=== PATIENT | female | born 1950 | race Caucasian/White ===

== ENCOUNTER 2020-04-24 14:26 | Observation (INO) | payer OTHER ==
--- OUTSIDE RECORDS SUMMARY | 2020-04-24 14:30 | XMS REPORT | Continuity of Care Document ---
:1950 Author Organization [facility] t Address [address] [place] [address] Care Team Providers Name Role Phone BLAS Primary Care Physician Unavailable PARMINDER Attending Clinician Unavailable Moon MILNER Attending Clinician MELONIE Attending Clinician Unavailable Lexi Mccoy NP Attending Clinician Blas MILNER Attending Clinician Tobi MILNER Attending Clinician Joshua RN, A Attending Clinician Unavailable Payers Payer Name Policy Type Policy Effective Date Expiration Date Sour ce Number MEDICAREMEDICARE PART [id number] 2017 MD Saldaña A AND 00:00:00 [id number] 2017- [phone] [place], [facility] [place] [facility] [id number] 2017 MD Saldaña CONTRACTEDHUMANA NON 00:00:00 [id number]/ 02/2017-PresentOther Problems Condition Condition Condition Status Onset Resolution Last Treating Co mments Source Name Details Category Date Date Treatment Clinician Date 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 00:00: n 00 Estrogen Estrogen Disease Active receptor receptor 5-11 Loco o positive positive 00:00: n status status 00 (ER+) (ER+) Pain in Pain in Disease Active joint joint 5-11 Anderso 00:00: n 00 Intolerant Intolerant Disease Active M D of heat of heat 06-18 Anderso 00:00: n 00 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 6-20 An markosso lung lung 00:00: n 00 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 Family History Family Member Diagnosis Comments Start Date Stop Date Source Natural brother Hypertension MD Reynolds rsrhianna Natural father -Skin (not Melanoma) MD Saldaña Natural father Coronary heart disease MD Saldaña (CHD) Natural father Hypertension Jay son Maternal grandfather -Leukemia MD Catalina moscoso Natural mother Hypertension Jay son Paternal grandfather Coronary heart disease MD Saldaña (CHD) Paternal grandfather Heart disease Danika Saldaña Paternal uncle Prostate cancer MD Celia aleman Natural sister -Skin (not Melanoma) MD Saldaña Natural sister Hypertension Jay son Social History Social Habit Start Date Stop Date Quantity Comments Source Sex Assigned At MD Adan on Tobacco use and 2018-12-21 2018-12-21 Never used MD Adan on exposure 00:00:00 00:00:00 Alcohol intake 2018-12-21 2018-12-21 Current drinker MD Celia aleman 00:00:00 00:00:00 of alcohol (finding) Smoking Status Start Date Stop Date Source Never smoker MD Saldaña Medications Ordered Filled Start Stop Current Ordering Indication Dosage Frequency Signature Comments Components Source Medication Medication Date Date Medication? Clinician (SIG) Name Name anastrozole 2019-02 Yes Infiltratin Take 1 (ARIMIDEX) 1-16 g duct tablet by An derso 1 mg tablet 00:00: carcinoma mouth once n 00 of daily overlapping sites of left female breast lisinopril 2019-02 Yes 1{tbl} Take 1 MD 20 mg tab 1-11 tablet by Jay so 20 mg, 14:55: mouth n hydrochloro 18 daily. thiazide 12.5 mg cap 12.5 mg rOPINIRole 2019-02 Yes restless 1mg Take 1 mg MD (REQUIP) 1 1-11 leg by mouth Jay so mg tablet 14:55: syndrome at n 18 bedtime. Reported on 04/28/2016 calcium 2019-02 Yes 1{tbl} Take 1 MD carbonate-v 1-11 tablet by And erso itamin D3 14:55: mouth n (AFISCNVL11 18 daily with 0+D) 600 mg breakfast. (1,500mg)-4 00 units per tablet ibuprofen 2019-02 Yes 200mg Take 200 MD (ADVIL,MOTR 1-11 mg by Anderso IN) 200 mg 14:55: mouth as n tablet 18 needed. Reported on 05/04/2016 hydrocortis 2019-02 Yes 1{appli Apply 1 MD one 1% 1-11 cation} applicatio Rodolfo rso cream 14:55: n n 18 topically to affected area(s) daily as needed. Reported on 04/28/2016 diphenhydrA 2019-02 Yes 12.5mg Chew 12.5 MD MINE 1-11 mg as Anderso (BENADRYL) 14:55: needed for n 12.5 mg 18 allergies. chewable tablet acetaminoph 2019-02 Yes 500mg Take 500 M D en (TYLENOL 1-11 mg by Anderso EXTRA 14:55: mouth. n STRENGTH) 18 500 mg tablet meloxicam 2019-02 Yes 7.5mg Take 7.5 MD (MOBIC) 7.5 0-14 mg by Anderso mg tablet 00:00: mouth n 00 daily. tiZANidine Yes 4mg Take 4 mg MD (ZANAFLEX) 9-18 by mouth Jay so 4 mg tablet 00:00: as needed. n 00 traMADol Yes Infiltratin TAKE 1 MD (ULTRAM) 50 5-15 g duct TABLET BY A nderso mg tablet 00:00: carcinoma MOUTH n 00 of lower EVERY 8 inner HOURS quadrant of NEEDED left female breast aspirin 500 2019-0 2020- No 500mg Take 500 MD mg tablet 5-13 05-13 mg by Anderso 13:14: 00:00 mouth n 21 :00 every 6 (six) hours as needed for mild pain. traMADol 2019- No Infiltratin 50mg Take 1 MD (ULTRAM) 50 4-13 05-13 g duct tablet (50 Anderso mg tablet 00:00: 00:00 carcinoma mg) by n 00 :00 of lower mouth 2 inner (two) quadrant of times a left female day as breast needed for moderate pain. traMADol 2019- No Infiltratin 50mg Take 1 MD (ULTRAM) 50 3-30 05-13 g duct tablet (50 Anderso mg tablet 00:00: 00:00 carcinoma mg) by n 00 :00 of lower mouth inner daily as quadrant of needed for left female moderate breast pain or severe pain. traMADol 2019- No Infiltratin TAKE 1 MD (ULTRAM) 50 3-03 05-13 g duct TABLET BY Anderso mg tablet 00:00: 00:00 carcinoma MOUTH n 00 :00 of lower EVERY 8 inner HOURS quadrant of NEEDED left female breast diclofenac Yes 2g Apply 2 g MD sodium 2-05 topically Anderso (Voltaren) 00:00: to n 1 % gel 00 affected area(s) as needed. traMADol 2019- No Infiltratin TAKE 1 MD (ULTRAM) 50 1-07 05-13 g duct TABLET BY Anderso mg tablet 00:00: 00:00 carcinoma MOUTH n 00 :00 of lower EVERY 8 inner HOURS quadrant of NEEDED left female breast anastrozole 2018-02- No Infiltratin 1mg Take 1 MD (ARIMIDEX) 1-13 11-16 g duct tablet (1 A nderso 1 mg tablet 00:00: 00:00 carcinoma mg) by n 00 :00 of mouth overlapping daily. sites of left female breast nystatin Yes Infiltratin Apply M D (NYSTOP) 9-11 g duct topically Rodolfo rso 100,000 00:00: carcinoma to n units/g 00 of lower affected powder inner area(s) 3 quadrant of (three) left female times a breast day. traMADol 2019- No Infiltratin TAKE 1 MD (ULTRAM) 50 4-15 05-15 g duct TABLET BY Anderso mg tablet 00:00: 00:00 carcinoma MOUTH n 00 :00 of lower EVERY 6 inner HOURS quadrant of NEEDED left female breast Vital Signs Vital Name Observation Time Observation Value Comments Source Systolic blood pressure 2019-12-20 14:44:37 126 mm[Hg] MD Saldaña Diastolic blood pressure 2019-12-20 14:44:37 84 mm[Hg] MD Saldaña Heart rate 2019-12-20 14:44:37 82 /min MD Jay miranda Body temperature 2019-12-20 14:44:37 36.78 Meg MD Catalina moscoso Respiratory rate 2019-12-20 14:44:37 18 /min MD Catalina moscoso Body weight 2019-12-20 14:44:37 89.2 kg MD Jay miranda BMI 2019-12-20 14:44:37 32.76 kg/m2 MD Jay miranda Oxygen saturation in 2019-12-20 14:44:37 98 /min MD Saldaña Arterial blood by Pulse oximetry Body height 2019-06-21 12:05:00 165 cm MD Jay miranda Procedures Procedure Date / Time Performed Performing Clinician [facility] e COMPLETE BLOOD COUNT W/ 2019-12-20 13:43:00 Katia Mccoy MD DIFFERENTIAL COMPREHENSIVE METABOLIC PANEL 2019-12-20 13:43:00 Emili Mccoy MD VITAMIN D 25 HYDROXY LEVEL 2019-12-20 13:43:00 Katia Mccoy MD Results CBC 2019-12-20 13:43:00 Katia Mccoy MD Rodolfo rson MANUAL DIFFERENTIAL 2019-12-20 13:43:00 Katia Mccoy MD GLUCOSE LEVEL 2019-12-20 13:43:00 Katia Mccoy MD Rodolfo rson BLOOD UREA NITROGEN 2019-12-20 13:43:00 Katia Mccoy MD ELECTROLYTE PANEL 2019-12-20 13:43:00 Katia Mccoy MD derson SERUM CREATININE 2019-12-20 13:43:00 Katia Mccoy MD And erson .GLOMERULAR FILTRATION RATE 2019-12-20 13:43:00 Katia Mccoy MD CALCIUM LEVEL TOTAL 2019-12-20 13:43:00 Katia Mccoy MD ALBUMIN LEVEL 2019-12-20 13:43:00 Katia Mccoy MD Rodolfo rson ALKALINE PHOSPHATASE 2019-12-20 13:43:00 Katia Mccoy MD ALANINE AMINOTRANSFERASE 2019-12-20 13:43:00 Katia Mccoy MD ASPARTATE AMINOTRANSFERASE 2019-12-20 13:43:00 Katia Mccoy MD TOTAL PROTEIN 2019-12-20 13:43:00 Katia Mccoy MD Rodolfo rson FRACTIONATED BILIRUBIN 2019-12-20 13:43:00 Katia Mccoy MD MAMMO DIGITAL DIAGNOSTIC RIGHT 2019-12-20 13:20:00 Odilia Mccoy MD W JAE US CHEST 2019-06-21 15:13:13 Kali Britton MD US UPPER EXTREMITY LIMITED 2019-06-21 15:13:13 Kali Britton LEFT DEXA BONE MINERAL DENSITY BOTH 2019-06-21 12:20:27 Odilia Mccoy MD HIPS AND SPINE COMPLETE BLOOD COUNT W/ 2019-06-21 11:50:00 Katia Mccoy MD DIFFERENTIAL COMPREHENSIVE METABOLIC PANEL 2019-06-21 11:50:00 Emili Mccoy MD VITAMIN D 25 HYDROXY LEVEL 2019-06-21 11:50:00 Katia Mccoy MD Results CBC 2019-06-21 11:50:00 Katia Mccoy MD Rodolfo rson MANUAL DIFFERENTIAL 2019-06-21 11:50:00 Katia Mccoy MD GLUCOSE LEVEL 2019-06-21 11:50:00 Katia Mccoy MD Rodolfo rson ELECTROLYTE PANEL 2019-06-21 11:50:00 Katia Mccoy MD derson SERUM CREATININE 2019-06-21 11:50:00 Katia Mccoy MD And erson .GLOMERULAR FILTRATION RATE 2019-06-21 11:50:00 Katia Mccoy MD CALCIUM LEVEL TOTAL 2019-06-21 11:50:00 Katia Mccoy MD ALBUMIN LEVEL 2019-06-21 11:50:00 Katia Mccoy MD Rodolfo rson ALKALINE PHOSPHATASE 2019-06-21 11:50:00 Katia Mccoy MD ALANINE AMINOTRANSFERASE 2019-06-21 11:50:00 Katia Mccoy MD ASPARTATE AMINOTRANSFERASE 2019-06-21 11:50:00 Katia Mccoy MD TOTAL PROTEIN 2019-06-21 11:50:00 Katia Mccoy MD Rodolfo rson FRACTIONATED BILIRUBIN 2019-06-21 11:50:00 Katia Mccoy MD BLOOD UREA NITROGEN 2019-06-21 11:50:00 Katia Mccoy MD Encounters Start End Encounter Admission Attending Care Care Encounter Source Date/Time Date/Time Type Type Clinicians Facility Department ID 2020-04-24 2020-04-24 [facility] [id number] [place] 00:00:00 00:00:00 EFREN [address] 2020-03-30 2020-03-30 Outpatient MELONIE, [facility] [id number] [place] 00:00:00 00:00:00 LAZARAER [address] 2020-03-12 2020-03-12 [facility] [id number] [place] 00:00:00 00:00:00 EFREN [address] 2020-03-12 2020-03-12 [facility] [id number] [place] 00:00:00 00:00:00 EFREN [address] 2020-03-09 2020-03-09 Outpatient [facility] [id number] [place] 00:00:00 00:00:[address] 2020-02-05 2020-02-05 [facility] [id number] [place] 00:00:00 00:00:00 EFREN [address] 2019-12-14 2019-12-14 [facility] [id number] [place] 00:00:00 00:00:00 EFREN [address] 2019-12-14 2019-12-14 [facility] [id number] [place] 00:00:00 00:00:00 EFREN [address] 2019-10-27 2019-10-27 [facility] [id number] [place] 00:00:00 00:00:00 EFREN [address] Results Test Description Test Time Test Comments Results Result Comments Source Vitamin D 25OH 2019-12-20 15:31:08 Test Item Value Reference Range Interpretation Comme nts Vitamin D 25 OH (test code = 56 ng/mL 30-100 Reference Range: Deficiency: 8018) <10 ng/mLInsuff iciency: 10-29 ng/mLSufficienc y: 30-100 ng/mLPotential toxicity: >100 ng/mL MD SaldañaFractionated [id number] 14:14:09 Test Item Value Reference Range Interpretation Comments Bili Total (test 0.4 mg/dL See_Comment Indocyanine Green (ICG) code = 5096) may cause false ly elevated biliru bin results. Total and direct bilirubin must not be measured from s amples containing indo cyanine green. False el evation of total bilirubin can be seen in patient s with IgG concentrations above 28 g/L.Testing Per formed at [facility], [address] [place] [address], [address], [facility] [[email or web address]] [place] [address] [Automat ed message] The sy stem which generated this result transmitted ref erence range: <=1.2. T he reference range was not used to interpr et this result as normal/abnormal . Bili Direct (test <0.2 See_Comment Indocyanin e Green (ICG) code = 5094) may cause false ly elevated biliru bin results. Total and direct bilirubin must not be measured from s amples containing indo cyanine green. Testing Performed at [facility], [address] [place] [address], [address], [place] [address] [Auto mated message] The sy stem which generated this result transmitted ref erence range: <=0.3 mg /dL. The reference range was not used to interpr et this result as normal/abnormal . Bili Indirect (test See Note 0-0.9 Testing Performed at [facility] code = 5095) Lab [facility], [address] [place] [address] B [address]vd, [address], [place], [place] [address]Skzgkv to calculate Indirect Biliru bin result due to some par ameters are outside rep ortable range MD SaldañaGlomerular Filtration [id number] 14:14:08 Test Item Value Reference Range Interpretation Comments eGFR-AA (test code = 63 See_Comment Normal eGFR >= 60 8062) mL/min/1.73 m2 Note: The eGFR is yvette culated using the CKD-E PI equation. The e GFR declines with a ge. eGFR <60 mL/min /1.73 m2 is considere d as "decreased". Th is equation should only be used for pat ients 18 and older. According to th e National Kidney Foundation's dney Disease Outcome Quality Initiat skye (KDOQI) classif ication and 2012 Kidney Disease Improvi ng Global Outcomes (KDIGO) Clinica l Practice Guidel ine, the stage of CK D should be categ orized based on estima flaco GFR. Stage Desc ription GFR mL/mi n/1.73 m21 Normal or h igh GFR >=902 Mildly decreased GFR 60-893a M ildly to moderately decreased GFR 45-593b Moderat jaren to severely decrea sed GFR 30-444 Nidla rely decreased GFR 15-295 Kidney f ailure <15 Testi ng Performed at [facility], [address], [address], [place] [address] [Automat ed message] The sy stem which generated this result transmit flaco reference range : >=60 mL/min/1.73 sq. m. The reference range was not used to int erpret this result as normal/abnormal . eGFR-JENNIFER (test code = 54 See_Comment L Normal eGFR >= 60 8063) mL/min/1.73 m2 Note: The eGFR is yvette culated using the CKD-E PI equation. The e GFR declines with a ge. eGFR <60 mL/min /1.73 m2 is considere d as "decreased". Th is equation should only be used for pat ients 18 and older. According to th e National Kidney Foundation's dney Disease Outcome Quality Initiat skye (KDOQI) classif ication and 2012 Kidney Disease Improvi ng Global Outcomes (KDIGO) Clinica l Practice Guidel ine, the stage of CK D should be categ orized based on estima flaco GFR. Stage Desc ription GFR mL/mi n/1.73 m21 Normal or h igh GFR >=902 Mildly decreased GFR 60-893a M ildly to moderately decreased GFR 45-593b Moderat jaren to severely decrea sed GFR 30-444 Nilda rely decreased GFR 15-295 Kidney f ailure <15 Testin g Performed at [facility], [address], [address], [facility] [address] [Automat ed message] The sy stem which generated this result transmit flaco reference range : >=60 mL/min/1.73 sq. m. The reference range was not used to int erpret this result as normal/abnormal . Lab Interpretation Abnormal (test code = 83195-1) MD SaldañaTotal [id number] 14:14:07 Test Item Value Reference Range Interpretation Comments Total Protein (test 7.5 g/dL 6.4-8.3 Testing Performed at [facility] code = 7649) Lab [facility], [address], [address], [place] [address] MD SaldañaCalcium [id number] 14:14:06 Test Item Value Reference Range Interpretation Comments Calcium Lvl (test 9.8 mg/dL 8.4-10.2 Testing Pe rformed at code = 5258) [facility], [address], [address], [place], [place] [address] MD SaldañaAlkaline [id number] 14:14:05 Test Item Value Reference Range Interpretation Comments Alk Phos (test code = 79 U/L 35-104 Testin g Performed at [facility] 4772) Lab [facility], [address], [place] [address] MD SaldañaAlbumin [id number] 14:14:04 Test Item Value Reference Range Interpretation Comments Albumin Lvl (test code 4.6 See_Comment Testi ng Performed at [facility] = 9405) Lab [facility], [address], [address], [place] [address] [Automated mess age] The system which ge nerated this result tra nsmitted reference range : 3.5 - 5.2 gm/dL. The refe rence range was not used to interpret this result as normal/abnormal . MD SaldañaAspartate [id number] 14:14:03 Test Item Value Reference Range Interpretation Comments AST (test code = 20 U/L See_Comment Testing Per formed at [facility] 1229) Lab [facility], [address], [place] [address] [Automated mess age] The system which ge nerated this result transmit flaco reference range : <=32. The reference range was not used to interpr et this result as pema l/abnormal. MD [id number] 14:14:01 Test Item Value Reference Range Interpretation Comments ALT (test code = 16 U/L See_Comment Testing Per formed at [facility] 4705) Lab [facility], [address], [place] [address] [Automated mess age] The system which ge nerated this result transmit flaco reference range : <=33. The reference range was not used to interpr et this result as pema l/abnormal. MD SaldañaElectrolyte [id number] 14:14:00 Test Item Value Reference Range Interpretation Comments Sodium Lvl (test code = 137 See_Comment Test ing Performed at [facility] 7333) Lab [facility], [address], [place] [address] [Automated mess age] The system which ge nerated this result tra nsmitted reference range : 136 - 145 mEq/L. The reference range was not u sed to interpret this result as normal/abnormal . Potassium Lvl (test 5.1 See_Comment Testing Performed at [facility] code = 6854) Lab [facility], [address], [place] [address] [Automated mess age] The system which ge nerated this result tra nsmitted reference range : 3.5 - 5.1 mEq/L. The reference range was not u sed to interpret this result as normal/abnormal . Chloride (test code = 100 See_Comment Testin g Performed at [facility] 4763) Lab [facility], [address], [place] [address] [Automated mess age] The system which ge nerated this result tra nsmitted reference range : 98 - 107 mEq/L. The refe rence range was not u sed to interpret this result as normal/abnormal . CO2 (test code = 5227) 27 See_Comment Testi ng Performed at [facility], [address], [place] [address] [Automated mess age] The system which ge nerated this result tra nsmitted reference range : 22 - 29 mEq/L. The refe rence range was not u sed to interpret this result as normal/abnormal . Anion Gap (test code = 10 See_Comment Testi ng Performed at [facility] 9325) Lab [facility], [address], [place] [address] [Automated mess age] The system which ge nerated this result tra nsmitted reference range : 4 - 14 mEq/L. The refe rence range was not u sed to interpret this result as normal/abnormal . MD Saldaña.Serum [id number] 14:13:59 Test Item Value Reference Range Interpretation Comments Creatinine (test code = 1.06 mg/dL 0.51-0.95 H Test ing Performed 5399) at [facility] Lab [facility], [address], [place], [place] [address] Lab Interpretation (test Abnormal code = 70095-1) MD [id number] 14:13:58 Test Item Value Reference Range Interpretation Comments BUN (test code = 5055) 24 mg/dL 6-23 H Testi ng Performed at [facility] Lab [facility], [address] [facility], [address], [place] [address] Lab Interpretation (test Abnormal code = 10830-0) MD SaldañaGlucose [id number] 14:13:57 Test Item Value Reference Range Interpretation Comments Glucose Level (test code 103 mg/dL 70-99 H Ref erence range is = 5699) valid for fasti ng specimens only. Guidelines established by the [place] [employer] es Association guidelines (Standards of Medical Care in Diabetes 2016. Diabetes Care 2 016; 39: S13-22) are that a fasting gluco se of greater than or equal to 126 mg /dL or a random glu cose greater than or equal to 200 mg /dL with symptoms, that are confirmed b y repeat testing on a different day, meet the criteria fo r diabetes mellit us. Testing Perform ed at [facility] Lab [facility], [address], [place] [address] Lab Interpretation (test Abnormal code = 28585-1) MD Sal[id number] 13:53:48 Test Item Value Reference Range Interpretation Comments Neutrophil % (test code 68.4 % 42-66 H As p art of = 6491) Differential performed at [facility], [address], [place] [address] Lymphocyte % (test code 17.2 % 24-44 L = 6194) Monocyte % (test code = 8.3 % 2-7 H 6422) Eosinophil % (test code 4.8 % 1-4 H = 5520) Basophil % (test code = 0.6 % 0-1 5068) IGRE % (test code = 0.7 % 0-0.4 H IGRE % c ount includes 5958) Metamyelocytes, Myelocytes, and Promyelocytes. As part of Differe ntial performed at [facility], [address], [place] [address] Neutrophil Abs (test 6.01 K/uL 1.7-7.3 code = 6492) Lymphocyte Abs (test 1.51 K/uL 1-4.8 code = 6195) Monocyte Abs (test code 0.73 K/uL 0.08-0.7 H = 6423) Eosinophil Abs (test 0.42 K/uL 0.04-0.4 H code = 5521) Basophil Abs (test code 0.05 K/uL 0-0.1 = 5069) IG Abs (test code = 0.06 K/uL 0-0.04 H 5954) Lab Interpretation Abnormal (test code = 10015-7) MD Saldaña.[id number] 13:53:45 Test Item Value Reference Range Interpretation Comments WBC (test code = 8.8 K/uL -11 8034) RBC (test code = 4.83 See_Comment [Automated message] The 6932) system which ge nerated this result tra nsmitted reference range : 4.00 - 5.50 M/uL. The reference range was not u sed to interpret this result as normal/abnormal . Hgb (test code = 14.0 See_Comment As part of CBC or as an 5898) individual [place] testing perform ed at [facility], [address], [place] [address] [Automated mess age] The system which ge nerated this result tra nsmitted reference range : 12.0 - 16.0 gm/dL. The reference range was not u sed to interpret this result as normal/abnormal . Hct (test code = 43.8 % 37-47 As part of CBC or as an 5860) individual [place] testing perform ed at [facility], [address], [place] [address] MCV (test code = 91 fL 82-98 6222) MCH (test code = 29.0 pg 27-31 6220) MCHC (test code = 32.0 See_Comment [Automate d message] The 6221) system which ge nerated this result tra nsmitted reference range : 31.0 - 36.0 gm/dL. The reference range was not u sed to interpret this result as normal/abnormal . RDW-SD (test code = 40.1 fL 35.1-46.3 6972) RDW-CV (test code = 12.3 % 12-15.5 6971) Platelet count (test 226 K/uL 140-440 As part of CBC or as an code = 6832) individual [place] testing perform ed at [facility], [address], [place] [address] MPV (test code = 9.3 fL 4-10.4 6282) INRBC (test code = 0.0 % See_Comment The INRBC (instrument 5974) NRBC) value ref lects the enumerationof n ucleated red blood cells contained in a 200uL samp leof whole blood analyzed by the instrument. Thi s value maydiffer from the NRBC value reported in a manual differen tial,which is based on a 1 00 cell differential. A s part of CBC testing per formed at [id number], [place] [address] [Automat ed message] The sy stem which generated this result transmitted ref erence range: <=0.0. T he reference range was not used to interpr et this result as normal/abnormal . MD SaldañaDiagnostic Mammogram w Jae - [id number] 13:21:35No evidence of malignancy. Follow-up mammogram in 1 year is recommended. BI-RADS Category 1:Negative Interface, Radiology Results In - 12/20/2019 7:21 AM CSTCLINICAL INDICATION:Patient is a 69 year old female and is seen for history of breast cancer MAMMO DIGITAL DIAGNOSTIC RIGHT W TOMOCOMPARISON:The present examination has been compared to prior imaging studies performed [facility] on 10/26/2017 and 12/21/2018. FINDINGS:There are scattered areas of fibroglandular density. No dominant mass, distortion, or suspicious calcifications are identified.There are no significant changes from the prior study. Tomosynthesis performed in CC and MLO projections. IMPRESSION:No evidence of malignancy. Follow-up mammogram in 1 year is recommended. BI-RADS Category 1:NegativeMD AndersonUS Upper Extremity Limited [id number] 21:29:19 No recurrent disease or malignant adenopathy detected. ACR BI-RADS Category 2: Benign Interface, Radiology Results In - 06/21/2019 4:38 PM CDTFULL RESULT:Examination: US CHEST, US UPPER EXTREMITY LIMITED LEFT, 06/21/2019 10:13 AMClinical History: 68-year-old woman with history of left breast multicentric IDC/DCIS High Grade.Indication: Follow-up surveillance of left axillary lymphadenopathyComparison: 04/26/2018 ultrasound exam. Technique: Real-time sonographic imaging of the left breast (including all 4 quadrants and retroareolar region) was performed. Imaging was performed of the axilla (levels I, II, and III). Ultrasound imaging of the chest/mediastinum was performed to evaluate the internal mammary lymph nodes. Images were obtained in multiple scanning planes.Findings: Left ChestWall:No suspicious sonographic findings to suggest recurrent disease. Status post mastectomy.Left Azucena Basins:No suspicious axillary (level I, II & III) or internal mammary lymphadenopathy is detected. IMPRESSION:No recurrent disease or malignant adenopathy detected. ACR BI-RADS Category 2: BenignMD AndersonUS [id number] 21:29:19 No recurrent disease or malignant adenopathy detected. ACR BI-RADS Category 2: Benign Interface, Radiology Results In - 06/21/2019 4:38 PM CDTFULL RESULT:Examination: US CHEST, US UPPER EXTREMITY LIMITED LEFT, 06/21/2019 10:13 AMClinical History: 68-year-old woman with history of left breast multicentric IDC/DCIS High Grade.Indication: Follow-up surveillance of left axillary lymphadenopathyComparison: 04/26/2018 ultrasound exam. Technique: Real-time sonographic imaging of the left breast (including all 4 quadrants and retroareolar region) was performed. Imaging was performed of the axilla (levels I, II, and III). Ultrasound imaging of the chest/mediastinum was performed to evaluate the internal mammary lymph nodes. Images were obtained in multiple scanning planes.Findings: Left ChestWall:No suspicious sonographic findings to suggest recurrent disease. Status post mastectomy.Left Azucena Basins:No suspicious axillary (level I, II & III) or internal mammary lymphadenopathy is detected. IMPRESSION:No recurrent disease or malignant adenopathy detected. ACR BI-RADS Category 2: BenignMD AndersonNM Bone Mineral Density Both Hips and [id number] 12:57:35Bone mineral density measurements are in the normal range. Statistically significant reduction in bone mineral density measurements in the left femoral neck may relate to differences in positioning andincrease in the lumbar spine may relate to evolving degenerative changes and overall no significant interval change. I personally reviewed these image(s) along with the resident's/fellow's interpretations, certify that if a procedure was performed I was physically present, and agree with the final report.Interface, Radiology Results In - 06/21/2019 7:59 AM CDTExamination: Bone Mineral Density (DXA), 06/21/2019Clinical History: 68-year-old postmenopausal patient treated for breast cancer.Indication: Assessment of bone mineral density.Comparison: 06/15/2018.Technique: Bone mineral density was obtained using Hologic dual-energy X-ray absorptiometry.Findings: The findings are provided in the below table( s).FULL RESULT:Bone Density: ---Region Exam Date BMD T- Z- g/cm2 Score Score AP Spine (L1-L4) 06/21/2019 1.131 0.8 2.6 Femoral Neck (Left) 06/21/2019 0.817 -0.3 1.3 Total Hip (Left) 06/21/2019 1.026 0.7 2.0 Femoral Neck (Right) 06/21/2019 0.846 0.0 1.6 Total Hip (Right) 06/21/2019 1.007 0.5 1.8 For postmenopausal women and men age 50 and over, the World Health Organization criteria for BMDinterpretation classify patients as: Normal (T-score at or above -1.0), Osteopenia (T-score between -1.0 and -2.5), or Osteoporosis (T-score at or below -2.5). Previous Exams: Region Exam Age BMD T-score BMD Change vs Date g/cm2 Baseline Previous AP Spine(L1-L4) 06/21/2019 68 1.131 0.8 -2.3% 5.3%* 06/15/2018 67 1.074 0.2 -7.2%* -4.1%* 06/18/2017 66 1.120 0.7 -3.3%* -3.3%* 06/26/2016 65 1.158 1.0 Total Hip(Left) 06/21/2019 68 1.026 0.7 4.2%* 0.0% 06/15/2018 67 1.026 0.7 4.2%* -1.2% 06/18/2017 66 1.039 0.8 5.5%* 5.5%* 06/26/2016 65 0.985 0.3 Femoral Neck(Left) 06/21/2019 68 0.817 -0.3 -8.2%* -9.3%* 06/15/2018 67 0.902 0.5 1.3% -0.5% 06/18/2017 66 0.907 0.5 1.8% 1.8% 06/26/2016 65 0.890 0.4 Total Hip(Right) 06/21/2019 68 1.007 0.5 5.1%* 1.2% 06/15/2018 67 0.995 0.4 3.8%* 1.2% 06/18/2017 66 0.983 0.3 2.6% 2.6% 06/26/2016 65 0.958 0.1 Femoral Neck(Right) 06/21/2019 68 0.846 0.0 -1.6% -0.7% 06/15/2018 67 0.852 0.0 -0.9% 3.0% 06/18/2017 66 0.827 -0.2 -3.8% -3.8% 06/26/2016 65 0.860 0.1 *Denotes significance at 95%confidence level, site specific LSC for AP Spine = 0.029 g/cm2, site specific LSC for Total Hip = 0.033 g/cm2, site specific LSC for Femoral Neck = 0.045 g/cm2, LSC for 1/3 Forearm = 0.023 g/cm2 IMPRESSION:Bone mineral density measurements are in the normal range.Statistically significant reduction inbone mineral density measurements in the left femoral neck may relate to differences in positioning and increase in the lumbar spine may relate to evolving degenerative changes and overall no significant interval change.I personally reviewed these image(s) along with the resident's/fellow's interpretations, certify that if a procedure was performed I was physically present, and agree with the final report.MD Saldaña
[2020-04-24 15:59] LABS: Absolute Lymphocytes (CBC) 1.1 K/uL (0.7-4.9); Basophils % 0.6 % (0-1.3); Hematocrit 39.5 % (36.0-45.0); Lymphocytes % 10.3 % (15.3-44.8); MPV 8.4 fL (7.6-11.3); RBC Red Blood Cell Count 4.57 M/uL (3.86-4.86)
[2020-04-24 16:02] LABS: Protime INR 0.91
[2020-04-24 16:15] LABS: ALT/SGPT 21 U/L (12-78); AST/SGOT 15 U/L (15-37); Alkaline Phosphatase 92 U/L (45-117); BUN Blood Urea Nitrogen 21 mg/dL (7-18); Bicarbonate 26 mmol/L (21-32); Bilirubin Direct 0.1 mg/dL (0-0.2); Bilirubin Total 0.4 mg/dL (0.2-1.0); Glucose Level 95 mg/dL (74-106); Magnesium 2.3 mg/dL (1.8-2.4); NT PRO-BNP 115 pg/mL (<125); Potassium 3.9 mmol/L (3.5-5.1); Protein, Total 7.6 g/dL (6.4-8.2); Sodium Level 139 mmol/L (136-145); Troponin (Emerg Dept Use Only) < 0.02 ng/mL (0.0-0.045)
--- NOTE | 2020-04-24 16:31 | RAD REPORT ---
EXAM DESCRIPTION: RAD - Chest Single View - 04/24/2020 3:43 pm CLINICAL HISTORY: CHEST PAIN COMPARISON: None TECHNIQUE: AP portable chest image was obtained 04/24/2020 3:43 pm . FINDINGS: Lungs are clear. Heart and vasculature are normal. No measurable pleural effusion and no p neumothorax. No acute bony abnormality seen. No acute aortic findings suspected. IMPRESSION: No acute cardiopulmonary process.
--- NOTE | 2020-04-24 17:08 | EDPHYS ---
Physician Documentation [facility] Name: Jennifer New Age: 69 yrs Sex: Female : 1950 Arrival Date: 04/24/2020 Time: 14:29 Bed 5 Private MD: ED Physician Jaime Stevens HPI: 04/24 15:09 This 69 yrs old Female presents to ER via Ambulatory with complaints of Chest [facility] Tightness. 15:09 The patient or guardian reports chest pain that is located primarily in the substernal [facility] area. Onset: acutely, yesterday. The pain radiates to the left scapula. Associated signs and symptoms: Pertinent negatives: shortness of breath, fever, cough. The chest pain is described as tightness. Duration: The patient or guardian reports multiple episodes, that are intermittent. Modifying factors: The symptoms are alleviated by nothing. the symptoms are aggravated by nothing. This is a 69 year old female with a history of htn, hlp, depression that presents to the ED with complaints of left sided chest pain beginning yesterday which was acute onset. Patient denies cough, fever, sob. HX of breast cancer. . Historical: - Allergies: 14:39 Lorazepam; ll1 - PMHx: 14:39 Hypertension; High Cholesterol; breast CA; restless legs; Depression; ll1 - PSHx: 14:39 Mastectomy, Left; oophrectomy; ll1 - Immunization history:: Flu vaccine is up to date. - Social history:: Smoking status: Patient denies any tobacco usage or history of. ROS: 15:09 Constitutional: Negative for fever, chills, and weight loss. jmm 15:09 Cardiovascular: Positive for chest pain. 15:09 All other systems are negative. Exam: 15:09 Constitutional: This is a well developed, well nourished patient who is awake, alert, jmm and in no acute distress. Head/Face: atraumatic. Eyes: EOMI, no conjunctival erythema appreciated ENT: Moist Mucus Membranes Neck: Trachea midline, Supple 15:09 Cardiovascular: Regular rate and rhythm. No edema appreciated Respiratory: Normal respirations, no respiratory distress appreciated Abdomen/GI: Non distended, soft Back: Normal ROM Skin: General appearance color normal MS/ Extremity: Moves all extremities, no obvious deformities appreciated, no edema noted to the lower extremities Neuro: Awake and alert, normal gait Psych: Behavior is normal, Mood is normal, Patient is cooperative and pleasant 15:09 Chest/axilla: Inspection: normal, Palpation: is normal. Vital Signs: 14:34 BP 176 / 95; Pulse 102; Resp 17; Temp 98.6; Pulse Ox 98% on R/A; Weight 85.73 kg; ll1 Height 5 ft. 6 in. (167.64 cm); Pain 3/10; 16:12 BP 152 / 103; Pulse 90; Resp 16; Pulse Ox 97% on R/A; hb 17:32 BP 156 / 97; Pulse 88; Resp 16; Pulse Ox 98% on R/A; Pain 0/10; ss 17:44 BP 149 / 107; Pulse 92; Resp 14; Pulse Ox 97% on R/A; hb 18:18 BP 139 / 92; Pulse 93; Resp 14; Pulse Ox 96% on R/A; hb 19:30 BP 136 / 91; Pulse 97; Resp 18; Pulse Ox 96% on R/A; wh 14:34 Body Mass Index 30.51 (85.73 kg, 167.64 cm) ll1 MDM: 15:19 Patient medically screened. [facility] 17:03 The patient was given aspirin in the Emergency Department. Data reviewed: vital signs, [facility] lab test result(s), EKG. ED course: I discussed the patient with Dr. Rolle whom accepted admission. . 04/24 15:09 Order name: CBC with Diff; Complete Time: 16:04 [facility] 04/24 15:09 Order name: LFT's; Complete Time: 16:16 [facility] 04/24 15:09 Order name: Magnesium; Complete Time: 16:16 [facility] 04/24 15:09 Order name: NT PRO-BNP; Complete Time: 16:16 [facility] 04/24 15:09 Order name: PT-INR; Complete Time: 16:09 [facility] 04/24 15:09 Order name: Troponin (emerg Dept Use Only); Complete Time: 16:16 [facility] 04/24 15:09 Order name: XRAY Chest (1 view); Complete Time: 16:33 [facility] 04/24 15:09 Order name: EKG; Complete Time: 15:10 [facility] 04/24 15:09 Order name: D-Dimer; Complete Time: 16:09 [facility] 04/24 15:10 Order name: Basic Metabolic Panel; Complete Time: 16:16 [facility] 04/24 17:00 Order name: COVID-19 : Document "Date of Symptom Onset" if Symptomatic. [facility] 04/24 19:02 Order name: SARS-COV-2 RT PCR; Complete Time: 19:03 [facility] 04/24 15:09 Order name: Cardiac monitoring; Complete Time: 16:03 [facility] 04/24 15:09 Order name: EKG - Nurse/Tech; Complete Time: 16:03 [facility] 04/24 15:09 Order name: IV Saline Lock; Complete Time: 16:17 [facility] 04/24 15:09 Order name: Labs collected and sent; Complete Time: 16:02 [facility] 04/24 15:09 Order name: O2 Per Protocol; Complete Time: 16: [facility] 04/24 15:09 Order name: O2 Sat Monitoring; Complete Time: 16:03 [facility] Administered Medications: 17:22 Not Given (Physician Discretion; pt already had a full dose today): Aspirin Chewable sv Tablet 324 mg PO once; 81 mg tablets x 4 Disposition: 04/24/20 17:07 Hospitalization ordered by Monty Rolle for Observation. Preliminary diagnosis is Chest pain, unspecified. - Bed requested for Telemetry/MedSurg (observation). - Status is Observation. - Condition is Stable. - Problem is new. - Symptoms are unchanged. Addendum: 04/25/2020 21:45 Available for consultation at all times. Did not see or evaluate patient unless p s1 otherwise noted. . Signatures: Dispatcher [employer] [facility] Chaya Pearson, RN ARIADNE dw Geovani Frank PA PA [facility] Gt Ochoa RN RN Jaime Stevens MD MD ps1 Waqar Patel RN RN Christiana King RN sv Corrections: (The following items were deleted from the chart) 04/24 16:03 15:10 BASIC METABOLIC PANEL+C.LAB.BRZ ordered. [facility] 19:15 17:07 Hospitalization Ordered by Monty Rolle DO for Observation. Preliminary diagnosis is Chest pain, unspecified. Bed requested for Telemetry/MedSurg (observation). Status is Observation. Condition is Stable. Problem is new. Symptoms are unchanged. [facility] 19:57 19:15 04/24/2020 17:07 Hospitalization Ordered by Monty Rolle DO for Observation. wh Preliminary diagnosis is Chest pain, unspecified. Bed requested for Telemetry/MedSurg (observation). Status is Observation. Condition is Stable. Problem is new. Symptoms are unchanged. dw
--- NOTE | 2020-04-24 17:08 | ER ---
Nurse's Notes [facility] Name: Jennifer New Age: 69 yrs Sex: Female : 1950 Arrival Date: 04/24/2020 Time: 14:29 Bed 5 Private MD: Diagnosis: Chest pain, unspecified Presentation: 04/24 14:34 Chief complaint: Patient states: L CP off/on for 2 days. Pain radiates through to back. ll1 States she told her doctor today about her elevated BP today, but didn't tell her about the chest pain. + lightheaded. No SOB or cough. Coronavirus screen: Client denies travel out of the [place] in the last 14 days. fatigue, Client presents with at least one sign or symptom that may indicate coronavirus-19. Standard/surgical mask placed on the client. Ebola Screen: Patient denies travel to an Ebola-affected area in the 21 days before illness onset. Initial Sepsis Screen: Does the patient meet any 2 criteria? HR > 90 bpm. No. Patient's initial sepsis screen is negative. Does the patient have a suspected source of infection? Yes: Other: L CP. Risk Assessment: Do you want to hurt yourself or someone else? Patient reports no desire to harm self or others. Onset of symptoms was April 23, 2020. 14:34 Method Of Arrival: Ambulatory ll1 14:34 Acuity: KIM 3 ll1 Triage Assessment: 19:15 General: Behavior is calm, cooperative, appropriate for age. wh Historical: - Allergies: 14:39 Lorazepam; ll1 - PMHx: 14:39 Hypertension; High Cholesterol; breast CA; restless legs; Depression; ll1 - PSHx: 14:39 Mastectomy, Left; oophrectomy; ll1 - Immunization history:: Flu vaccine is up to date. - Social history:: Smoking status: Patient denies any tobacco usage or history of. Screenin:47 Abuse screen: Denies threats or abuse. Denies injuries from another. Nutritional hb screening: No deficits noted. Tuberculosis screening: No symptoms or risk factors identified. Fall Risk None identified. Assessment: 15:47 General: Appears in no apparent distress. Pain: Pain currently is 3 out of 10 on a pain hb scale. Neuro: Level of Consciousness is awake, alert, obeys commands, Oriented to person, place, time, situation. Cardiovascular: Capillary refill < 3 seconds Patient's skin is warm and dry. Rhythm is irregular. Respiratory: Respiratory effort is even, unlabored, Respiratory pattern is regular, symmetrical. GI: No signs and/or symptoms were reported involving the gastrointestinal system. : No signs and/or symptoms were reported regarding the genitourinary system. EENT: No signs and/or symptoms were reported regarding the EENT system. Derm: Skin is pink, warm \T\ dry. Musculoskeletal: No signs and/or symptoms reported regarding the musculoskeletal system. 16:18 Reassessment: Patient appears in no apparent distress at this time. Patient and/or hb family updated on plan of care and expected duration. Pain level reassessed. Patient is alert, oriented x 3, equal unlabored respirations, skin warm/dry/pink. 17:32 Reassessment: Patient appears in no apparent distress at this time. Patient and/or ss family updated on plan of care and expected duration. Pain level reassessed. Patient is alert, oriented x 3, equal unlabored respirations, skin warm/dry/pink. aware of admission for further evaluation. Awaiting covid results that have been sent now prior to receiving room assignment. Call light within reach. 18:18 Reassessment: Patient appears in no apparent distress at this time. Patient and/or hb family updated on plan of care and expected duration. Pain level reassessed. Patient is alert, oriented x 3, equal unlabored respirations, skin warm/dry/pink. 19:15 Reassessment: Patient appears in no apparent distress at this time. Patient and/or wh family updated on plan of care and expected duration. Pain level reassessed. Patient is alert, oriented x 3, equal unlabored respirations, skin warm/dry/pink. 19:55 Pain: Complains of pain in chest Pain radiates to back Pain began 2-3 days ago. Vital Signs: 14:34 BP 176 / 95; Pulse 102; Resp 17; Temp 98.6; Pulse Ox 98% on R/A; Weight 85.73 kg; ll1 Height 5 ft. 6 in. (167.64 cm); Pain 3/10; 16:12 BP 152 / 103; Pulse 90; Resp 16; Pulse Ox 97% on R/A; hb 17:32 BP 156 / 97; Pulse 88; Resp 16; Pulse Ox 98% on R/A; Pain 0/10; ss 17:44 BP 149 / 107; Pulse 92; Resp 14; Pulse Ox 97% on R/A; hb 18:18 BP 139 / 92; Pulse 93; Resp 14; Pulse Ox 96% on R/A; hb 19:30 BP 136 / 91; Pulse 97; Resp 18; Pulse Ox 96% on R/A; wh 14:34 Body Mass Index 30.51 (85.73 kg, 167.64 cm) ll1 ED Course: 14:29 Patient arrived in ED. ds1 14:37 Triage completed. ll1 14:39 Arm band placed on Patient placed in an exam room, on a stretcher. 1 15:08 Geovani Frank PA is PHCP. [facility] 15:08 Jaime Stevens MD is Attending Physician. [facility] 15:26 Selma Garcia, RN is Primary Nurse. hb 15:43 XRAY Chest (1 view) In Process Unspecified. EDMS 15:47 Patient has correct armband on for positive identification. Bed in low position. Call hb light in reach. Side rails up X 1. supervisor alum plant on. Pulse ox on. NIBP on. 15:47 Patient maintains SpO2 saturation greater than 95% on room air. hb 15:48 Initial lab(s) drawn, by nc, sent to lab. Inserted saline lock: 18 gauge in right mh5 wrist, using aseptic technique. Blood collected. 15:49 EKG done, by ED staff, reviewed by Jaime Stevens MD. [facility] 16:02 Basic Metabolic Panel Sent. 5 16:02 D-Dimer Sent. 5 16:02 CBC with Diff Sent. 5 16:02 LFT's Sent. 5 16:02 Magnesium Sent. 5 16:02 NT PRO-BNP Sent. 5 16:03 PT-INR Sent. 5 16:03 Troponin (emerg Dept Use Only) Sent. 5 17:07 Monty Rolle DO is Hospitalizing Provider. [facility] 17:31 No provider procedures requiring assistance completed. Inserted saline lock: 22 gauge ss in right hand, using aseptic technique. 17:31 Patient admitted, IV remains in place. ss Administered Medications: 17:22 Not Given (Physician Discretion; pt already had a full dose today): Aspirin Chewable sv Tablet 324 mg PO once; 81 mg tablets x 4 Outcome: 17:07 Decision to Hospitalize by Provider. tito 19:55 Admitted to Med/surg accompanied by tech, via wheelchair, room 220, with chart, Report wh called to Sangita Klein RN 19:55 Condition: stable 19:55 Instructed on the need for admit. 19:57 Patient left the ED. Signatures: Dispatcher [employer] Christiana Sharma, RN ARIADNE Geovani Frank PA PA jmm Sanford, Demi ds1 Antonina Horne RN RN Selma Garcia RN RN hb Martinez, Maria [facility] Gt Ochoa RN RN Waqar Patel RN RN ll1 Corrections: (The following items were deleted from the chart) 16:03 16:01 BASIC METABOLIC PANEL+C.LAB.BRZ drawn and sent. EDPA 19:55 19:15 Pain: Denies pain. [facility]
--- NOTE | 2020-04-24 17:37 | P.HP ---
Certification for Inpatient Patient admitted to: Observation With expected LOS: <2 Midnights Patient will require the following post-hospital care: None Practitioner: I am a practitioner with admitting privileges, knowledge of patient current condition, hospital course, and medical plan of care. Services: Services provided to patient in accordance with Admission requirements found in Title 42 Section 412.3 of the Code of Federal Regulations Patient History Date of Service: 04/24/20 Primary Care Provider: Roberto Salazar Reason for admission: Chest pain History of Present Illness: 69-year-old female with history of hypertension, hyperlipidemia, depression with anxiety and breast cancer with prior left breast mastectomy and chemotherapy. Patient presented with chest pain. Patient reported chest pain yesterday to the center of the chest that radiated to the left chest wall down to the arm pit and back. Pain was intense. This lasted about 45 min. She then reported some pain again today. He was tight with a dull ache. She denied any shortness of breath, nausea vomiting. She came to the ER for further evaluation. In the ER patient evaluated. EKG does not show any significant ST elevation. Troponin unremarkable. CBC and BMP stable. Due to her risk factors the patient was admitted for observation. When I saw the patient ER, patient stable. Blood pressures were elevated. Patient reported blood pressure is elevated recently. She had seen her PCP by teleconference recently. She was to start metoprolol. Patient takes lisinopril hydrochlorothiazide. She also takes Crestor. Patient reports having some type of test done which indicated her to start her on Crestor. Patient reports his tory of breast cancer with prior chemotherapy. Patient has not had a workup in the past. Family history of CAD noted. Home medications list reviewed: Yes - Past Medical/Surgical History Diabetic: No -: Hypertension -: Hyperlipidemia -: Depression -: Restless leg syndrome -: Breast cancer with prior left mastectomy/chemother -: Left breast mastectomy -: Oophorectomy Psychosocial/ Personal History: Patient - Family History Family History: Reviewed- Non-Contributory - Social History Smoking Status: Never smoker Alcohol use: Yes CD- Drugs: No Caffeine use: Yes Place of Residence: Home Review of Systems General: As per HPI Eyes: Unremarkable ENT: Unremarkable Respiratory: As per HPI Cardiovascular: Chest Pain, As per HPI Gastrointestinal: Unremarkable Genitourinary: Unremarkable Musculoskeletal: Unremarkable Integumentary: Unremarkable Neurological: Unremarkable Lymphatics: Unremarkable Physical Examination - Physical Exam General: Alert, In no apparent distress, Oriented x3, Cooperative HEENT: Atraumatic Neck: Supple Respiratory: Clear to auscultation bilaterally, Normal air movement Cardiovascular: Normal pulses, Regular rate/rhythm Gastrointestinal: Normal bowel sounds, Soft and benign, Non-distended, No tenderness, No masses, No rebound, No guarding Musculoskeletal: No erythema, No tenderness, No warmth Integumentary: No erythema, No warmth, No cyanosis Neurological: Normal speech, Normal strength at 5/5 x4 extr, Normal tone, Normal affect - Studies Laboratory Data (last 24 hrs) 04/24/20 15:44: PT 10.5, INR 0.91 04/24/20 15:44: WBC 10.40, Hgb 13.4, Hct 39.5, Plt Count 227 04/24/20 15:44: Sodium 139, Potassium 3.9, BUN 21 H, Creatinine 0.93, Glucose 95, Magnesium 2.3, Total Bilirubin 0.4, AST 15, ALT 21, Alkaline Phosphatase 92 Assessment and Plan - Plan Impression: Chest pain Hypertension uncontrolled Hyperlipidemia Depression History of breast cancer with prior left breast mastectomy Restless leg syndrome Plan: Chest pain: Patient will be admitted for further evaluation and treatment. Will monitor telemetry and cardiac enzymes. No significant EKG changes noted at this time. Will monitor telemetry. Patient with multiple risk factors inclu ding hypertension, hyperlipidemia, obesity and family risk factors for CAD. Will consult cardiology for further recommendation. Patient may require cardiac evaluation to further address. Will keep the patient NPO after midnight. Will address with cardiology. Will continue with home medication of Crestor, lisinopril hydrochlorothiazide. Will add aspirin and metoprolol. Will continue to monitor closely. Await recommendations by Cardiology. Hypertension uncontrolled: Continue lisinopril hydrochlorothiazide. Add metoprolol. Hyperlipidemia: Will monitor fasting lipid panel. Continue home medication- Crestor. Depression: Continue home medication History of breast cancer with prior left breast mastectomy: Continue home medication Restless leg syndrome: Continue home medication Discharge Plan: Home Plan to discharge in: 24 Hours - Advance Directives Does patient have a Living Will: No Does patient have a Durable POA for Healthcare: No - Code Status/Comfort Care Code Status Assessed: Yes (Patient is full code) Time Spent Managing Pts Care (In Minutes): 55
[2020-04-24] MEDS ORDERED: ACETAMINOPHEN 500 MG TAB PO PRN (20:06)
[2020-04-24] MEDS: METOPROLOL TAR 25 MG TAB PO SCH (20:06)
[2020-04-24] MEDS ORDERED: ONDANSETRON 4 MG/2 ML VIAL IV PRN (20:06)
[2020-04-24] MEDS: ASPIRIN EC 81 MG TAB PO SCH (20:06)
[2020-04-24 20:11] VITALS: O2SAT 96
[2020-04-24] MEDS ORDERED: ROPINIROLE HCL 1 MG TAB PO SCH (21:00)
[2020-04-24] MEDS: lisinopriL 20 MG TAB PO SCH (21:00)
[2020-04-24] MEDS ORDERED: ROSUVASTATIN 10 MG TAB PO SCH (21:00)
[2020-04-24] MEDS: hydroCHLOROthiazide 12.5 MG CAP PO SCH (21:00)
[2020-04-24] MEDS: CALCIUM CARB 500MG/VIT D 200 IU TAB PO SCH (21:00)
[2020-04-24 22:01] LABS: CKMB Creatine Kinase MB 1.8 ng/mL (0.3-3.6); Creatine Phosphokinase 68 U/L (26-192); Troponin I < 0.02 ng/mL (0.0-0.045)
[2020-04-25 05:34] VITALS: BMI 30.4
[2020-04-25 05:34] LABS: Basophils % 0.7 % (0-1.3); Hematocrit 38.2 % (36.0-45.0); Lymphocytes % 10.9 % (15.3-44.8); MPV 8.5 fL (7.6-11.3); RBC Red Blood Cell Count 4.42 M/uL (3.86-4.86)
[2020-04-25] MEDS: METOPROLOL TAR 25 MG TAB PO SCH (06:00)
[2020-04-25] MEDS ORDERED: PNEUMOCOCCAL VACCINE 0.5 ML IMVAC ONE (06:00)
[2020-04-25 06:03] LABS: Magnesium 2.1 mg/dL (1.8-2.4); Potassium 3.9 mmol/L (3.5-5.1)
[2020-04-25] MEDS ORDERED: PANTOPRAZOLE 40MG TABLET PO SCH (06:30)
--- NOTE | 2020-04-25 08:03 | P.PN ---
Subjective Date of Service: 04/25/20 Primary Care Provider: Roberto Salazar Chief Complaint: Chest pain Subjective: Improving, Doing well Physical Examination - Vital Signs Temperature: 97.8 F Blood Pressure: 110/60 Pulse: 68 Respirations: 18 Pulse Ox (%): 97 - Studies Laboratory Data (last 24 hrs) 04/24/20 15:44: PT 10.5, INR 0.91 04/24/20 15:44: WBC 10.40, Hgb 13.4, Hct 39.5, Plt Count 227 04/24/20 15:44: Sodium 139, Potassium 3.9, BUN 21 H, Creatinine 0.93, Glucose 95, Magnesium 2.3, Total Bilirubin 0.4, AST 15, ALT 21, Alkaline Phosphatase 92 Assessment & Plan Discharge Plan: Home Plan to discharge in: 24 Hours Physician Review Additional Text: Physical exam: Patient alert, cooperative. No chest pain noted. Heart: Regular rate rhythm Lungs: Clear to auscultation Abdomen: Soft nontender Extremities: Good range of motion to the upper lower extremities without focal deficits. Impression: Chest pain Hypertension uncontrolled Hyperlipidemia Depression History of breast cancer with prior left breast mastectomy Restless leg syndrome Plan: Chest pain: Cardiac enzymes unremarkable. Blood pressure improved with metoprolol added. LDL 67. Case discussed in detail with cardiology. Due to her risk factors will order cardiac stress test to further evaluate. If positive then patient will require heart catheterization. If negative patient can be discharge. Will continue monitor closely. Await results from cardiac stress test to determine plan of care. Hypertension uncontrolled: Continue lisinopril hydrochlorothiazide and metoprolol. Hyperlipidemia: LDL 67. Continue home medication-Crestor. Depression: Continue home medication History of breast cancer with prior left breast mastectomy: Continue home medication Restless leg syndrome: Continue home medication Time Spent Managing Pts Care (In Minutes): 55
[2020-04-25] MEDS: CALCIUM CARB 500MG/VIT D 200 IU TAB PO SCH (09:00)
[2020-04-25] MEDS ORDERED: ENOXAPARIN 40 MG/0.4 ML SQ SCH (09:00)
[2020-04-25] MEDS ORDERED: ANASTROZOLE 1 MG TAB PO SCH (09:00)
[2020-04-25] MEDS: hydroCHLOROthiazide 12.5 MG CAP PO SCH (09:00)
[2020-04-25] MEDS ORDERED: BUPROPION HCL XL 150 MG TAB PO SCH (09:00)
[2020-04-25] MEDS: ASPIRIN EC 81 MG TAB PO SCH (09:00)
[2020-04-25] MEDS: lisinopriL 20 MG TAB PO SCH (09:00)
[2020-04-25] MEDS ORDERED: REGADENOSON 0.4 MG/5 ML SYR IV ONE (10:14)
--- NOTE | 2020-04-25 12:13 | RAD REPORT ---
EXAM DESCRIPTION: NM - Rest Stress Cardiac Imaging - 04/25/2020 12:01 pm CLINICAL HISTORY: CP Chest pain. COMPARISON: No comparisons TECHNIQUE: The patient was administered approximately 10mCi of Tc 99m Sestamibi prior to resting SPE CT imaging of the heart. The patient was then administered approximately 30 mCi of Tc 99m Sestamibi f ollowing exercise or pharmacologic stress. Multiplanar SPECT images were reviewed. FINDINGS: No stress induced ischemic defect is seen to suggest stress induced ischemia. No fixed def ect is seen to suggest hibernating myocardium or scarred myocardium. The end diastolic volume is 79 ml, the end systolic volume is 37 ml, and the ejection fraction is 54 %. IMPRESSION: No stress induced ischemia.
--- NOTE | 2020-04-25 12:24 | P.DS ---
Admission Date: 04/24/20 Discharge Date: 04/25/20 Primary Care Provider: Roberto Salazar Disposition: ROUTINE DISCHARGE Discharge Condition: GOOD Reason for Admission: Chest pain Consultations: Cardiology-Dr. Jackson Procedures: COVID: Negative Cardiac Stress Test: FINDINGS: No stress induced ischemic defect is seen to suggest stress induced ischemia. No fixed defect is seen to suggest hibernating myocardium or scarred myocardium. The end diastolic volume is 79 ml, the end systolic volume is 37 ml, and the ejection fraction is 54 %. IMPRESSION: No stress induced ischemia. Medical Problem List: Chest pain status post cardiac stress test showing no stress-induced ischemia Hypertension uncontrolled Hyperlipidemia Depression History of breast cancer with prior left breast mastectomy Restless leg syndrome Brief History of Present Illness: 69-year-old female with history of hypertension, hyperlipidemia, depression with anxiety and breast cancer with prior left breast mastectomy and chemotherapy. Patient presented with chest pain. Patient reported chest pain yesterday to the center of the chest that radiated to the left chest wall down to the arm pit and back. Pain was intense. This lasted about 45 min. She then reported some pain again today. He was tight with a dull ache. She denied any shortness of breath, nausea vomiting. She came to the ER for further evaluation. In the ER patient evaluated. EKG does not show any significant ST elevation. Troponin unremarkable. CBC and BMP stable. Due to her risk factors the patient was admitted for observation. When I saw the patient ER, patient stable. Blood pressures were elevated. Patient reported blood pressure is elevated recently. She had seen her PCP by teleconference recently. She was to start metoprolol. Patient takes lisinopril hydrochlorothiazide. She also takes Crestor. Patient reports having some type of test done which indicated her to start her on Crestor. Patient reports history of breast cancer with prior chemotherapy. Patient has not had a workup in the past. Family history of CAD noted. Hospital Course: Patient presented with chest pain. Patient with multiple risk factors. Patient was admitted for further evaluation. Cardiology was consulted. Cardiology recommended cardiac stress test to further evaluate patient. Cardiac stress test showed no stress-induced ischemia. Cardiac enzymes unremarkable. No further intervention required at this time. Patient may have underlying GERD. At discharge patient will continue with Protonix 40 mg daily. Patient may benefit with GI evaluation as an outpatient. Will also recommend to discontinue Mobic or to use it as needed. She patient with hypertension. Blood pressure was on controlled. Patient now on beta-gladys therapy. Patient takes lisinopril hydrochlorothiazide as well. At discharge she will continue with lisinopril hydrochlorothiazide 20/12.5 mg 1 pill twice daily and metoprolol XL 25 mg daily. Recommend to maintain blood pressure less than 130/80. Further adjustment can be done by her PCP. Patient with hyperlipidemia. LDL 67. At discharge she will continue with Crestor 10 mg daily. Patient with history of breast cancer with prior left breast mastectomy and chemotherapy. This is currently stable. At discharge she will continue with Arimidex 1 mg daily. Patient with depression. At discharge she will continue with Bupropion XL 300 mg daily. Patient with restless leg syndrome. At discharge she will continue with Requip 1 mg at bedtime. Vital Signs/Physical Exam: Temp Pulse Resp BP Pulse Ox 97.8 F 68 18 110/60 97 04/25/20 08:02 04/25/20 08:02 04/25/20 08:02 04/25/20 08:02 04/25/20 08:02 General: Alert, In no apparent distress, Oriented x3, Cooperative HEENT: Atraumatic Neck: Supple Respiratory: Clear to auscultation bilaterally, Normal air movement Cardiovascular: Normal pulses, Regular rate/rhythm Gastrointestinal: Normal bowel sounds, Soft and benign, Non-distended, No te nderness, No masses, No rebound, No guarding Neurological: Normal speech, Normal strength at 5/5 x4 extr, Normal tone, Normal affect Laboratory Data at Discharge: WBC 9.10 K/uL (4.3-10.9) 04/25/20 05:11 Hgb 12.8 g/dL (12.0-15.0) 04/25/20 05:11 Hct 38.2 % (36.0-45.0) 04/25/20 05:11 Plt Count 190 K/uL (152-406) 04/25/20 05:11 PT 10.5 SECONDS (9.5-12.5) 04/24/20 15:44 INR 0.91 04/24/20 15:44 Sodium 140 mmol/L (136-145) 04/25/20 05:11 Potassium 3.9 mmol/L (3.5-5.1) 04/25/20 05:11 BUN 20 mg/dL (7-18) H 04/25/20 05:11 Creatinine 0.95 mg/dL (0.55-1.3) 04/25/20 05:11 Glucose 92 mg/dL (74-106) 04/25/20 05:11 Magnesium 2.1 mg/dL (1.8-2.4) 04/25/20 05:11 Total Bilirubin 0.4 mg/dL (0.2-1.0) 04/24/20 15:44 AST 15 U/L (15-37) 04/24/20 15:44 ALT 21 U/L (12-78) 04/24/20 15:44 Alkaline Phosphatase 92 U/L (45-117) 04/24/20 15:44 Troponin I < 0.02 ng/mL (0.0-0.045) 04/24/20 21:25 Triglycerides 97 mg/dL (<150) 04/25/20 05:11 Cholesterol 152 mg/dL (<200) 04/25/20 05:11 HDL Cholesterol 66 mg/dL (40-60) H 04/25/20 05:11 Cholesterol/HDL Ratio 2.30 04/25/20 05:11 Home Medications: Anastrozole [Arimidex*] 1 mg PO DAILY 04/25/20 Bupropion *Xl* [Wellbutrin XL*] 300 mg PO DAILY 04/25/20 Calcium Carbonate/Vitamin D3 [Caltrate 600 Plus D3 Tablet] 1 each PO BID 04/25/20 Lisinopril/Hydrochlorothiazide [Lisinopril-Hctz 20-12.5 mg Tab] 1 each PO BID 04/25/20 Metoprolol Succinate [Toprol Xl*] 25 mg PO DAILY 04/25/20 Pantoprazole Sodium [Protonix] 40 mg PO DAILY #30 tablet. 04/25/20 Ropinirole HCl [Requip*] 1 mg PO BEDTIME 04/25/20 Rosuvastatin [Crestor*] 10 mg PO BEDTIME 04/25/20 Tizanidine HCl [Zanaflex] 4 mg PO PRN PRN 04/25/20 New Medications: Pantoprazole Sodium [Protonix] 40 mg PO DAILY #30 tablet. Physician Discharge Instructions: Patient presented with chest pain. Patient with multiple risk factors. Patient was admitted for further evaluation. Cardiology was consulted. Cardiology recommended cardiac stress test to further evaluate patient. Cardiac stress test showed no stress-induced ischemia. Cardiac enzymes unremarkable. No fu rther intervention required at this time. Patient may have underlying GERD. At discharge patient will continue with Protonix 40 mg daily. Patient may benefit with GI evaluation as an outpatient. Will also recommend to discontinue Mobic or to use it as needed. She patient with hypertension. Blood pressure was on controlled. Patient now on beta-gladys therapy with better control. Patient takes lisinopril hydrochlorothiazide as well. At discharge she will continue with lisinopril hydrochlorothiazide 20/12.5 mg 1 pill twice daily and metoprolol XL 25 mg daily. Recommend to maintain blood pressure less than 130/80. Further adjustment can be done by her PCP. Patient with hyperlipidemia. LDL 67. At discharge she will continue with Crestor 10 mg daily. Patient with history of breast cancer with prior left breast mastectomy and chemotherapy. This is currently stable. At discharge she will continue with Arimidex 1 mg daily. Patient with depression. At discharge she will continue with Bupropion XL 300 mg daily. Patient with restless leg syndrome. At discharge she will continue with Requip 1 mg at bedtime. Diet: AHA Activity: Ad karl Followup: NONE,NONE [Primary Care Provider] - Time spent managing pt's care (in minutes): 55
[2020-04-25 12:27] LABS: Urine Appearance CLEAR; Urine Bilirubin NEGATIVE (NEG); Urine Blood TRACE (NEG); Urine Color YELLOW; Urine Glucose NEGATIVE (NEG); Urine Protein NEGATIVE (NEG); Urine Specific Gravity 1.015 (1.005-1.030)
[2020-04-25 12:32] VITALS: BP 122/64; TEMP 98.2
[2020-04-25 13:26] LABS: Urine Microscopic Reflex ORDER UMIC
[2020-04-25 14:04] LABS: Urine Bacteria <20 /HPF (<20); Urine Mucus 1+ /HPF (NONE SEEN)
--- NOTE | 2020-04-25 19:03 | CON ---
Date of Consultation: 04/25/2020 History Of Present Illness: This is a 69-year-old female with history of hypertension, dyslipidemia, breast cancer status post mastectomy and chemotherapy, presented with chest pain in left chest, radi ates to the back and left arm, had 2 episodes lasting about 45 minutes. No other symptoms. Past Medical History: As outlined above in HPI. Medications: Refer to reconciliation sheet for detailed list. Allergies: . Family History: No premature coronary artery disease or cancer. Social History: Does not smoke or drink. Does not use any drugs. Review of Systems: All systems reviewed and they were negative except what mentioned in the HPI. Physical Examination: Vital Signs: Temperature is 98.2, pulse 85, breathing at 18, blood pressure is 110/60, saturating 97 %. General: This is a middle-aged female, in no apparent distress. Head and Neck: Pupils are equal, reactive to light. Intact eye movements. No JVD. No cervical lym phadenopathy. Neck: Supple. Thyroid is not enlarged. Lungs: Clear to auscultation bilaterally. No rhonchi, rales, or crackles. No accessory muscle use. Heart: Regular rate and rhythm. No extra sounds. Abdomen: Soft, nontender. Bowel sounds positive. No organomegaly. No masses or hernia. No rigidi ty or rebound. Extremities: No edema, clubbing, or cyanosis. Intact pulses. Skin: No rash noted. Neurologic: Alert, awake, oriented x3. No acute focal deficits appreciated. Investigations: Troponins x2 are negative. Creatinine 0.93. Hemoglobin is 12.8. Assessment And Plan: Chest pain. Has some typical features. Troponins are negative. Recommend exe rcise nuclear stress test. If this is normal, the patient can be released to follow up as an outpati ent. Please obtain echocardiogram. Thank you for the consult. /CLEMENTINA Voice ID: [id number] Report ID: [id number]
--- NOTE | 2020-04-26 11:16 | ECHO ---
HEIGHT: 5 ft 6 in WEIGHT: 189 lb 0 oz DATE OF STUDY: 04/25/[address]: Monty Rolle DO 2-DIMENSIONAL: YES M.MODE: YES DOPPLER: YES COLOR FLOW: YES TDS: YES PORTABLE: NO DEFINITY: NO BUBBLE STUDY: NO DIAGNOSIS: CHEST PAIN CARDIAC HISTORY: CATHERIZATION: NO SURGERY: NO PROSTHETIC VALVE: NO PACEMAKER: NO MEASUREMENTS (cm) DIASTOLIC (NORMALS) SYSTOLIC (NORMALS) IVSd 0.8 (0.6-1.2) LA Diam 2.4 (1.9-4.0) LVEF 63% LVIDd 5.0 (3.5-5.7) LVIDs 3.3 (2.0-3.5) %FS 34% LVPWd 0.8 (0.6-1.2) Ao Diam 2.5 (2.0-3.7) 2 DIMENSIONAL ASSESSMENT: RIGHT ATRIUM: NORMAL LEFT ATRIUM: NORMAL RIGHT VENTRICLE: NORMAL LEFT VENTRICLE: NORMAL TRICUSPID VALVE: NORMAL MITRAL VALVE: NORMAL PULMONIC VALVE: NORMAL AORTIC VALVE: NORMAL PERICARDIAL EFFUSION: NONE AORTIC ROOT: NORMAL LEFT VENTRICULAR WALL MOTION: NORMAL DOPPLER/COLOR FLOW: SEE BELOW. COMMENTS: NORMAL LEFT VENTRICULAR EJECTION FRACTION 55-60%. NORMAL WALL MOTION. GRADE I DIASTIOLIC DYSFUNCTION. TECHNOLOGIST: Dejuan HUMMEL
--- NOTE | 2020-04-26 11:21 | TREADPHA ---
DX: CHEST PAIN Date of Study: 04/25/2020 Ht: 5' 6 " Wt: 189 lb 0 oz Consulting Physician: JOSE RAFAEL MEDICATIONS: ASPIRIN, WELLBUTRIN XL, LOVENOX, LOPRESSOR, PRINIVIL, CRESTOR HISTORY: HYPERTENSION AND HIGH CHOLESTEROL. PHYSICIAL EXAMINATION: RESTING B.P.: 123/70 RESTING H.R.: 79 RESTING EKG: NORMAL PROTOCOL: LEXISCAN EXERCISE TIME: 3:30 B.P. AT PEAK STRESS: 131/71 IMPRESSION: LEXISCAN STRESS TEST PERFORMED. CARDIOLITE INJECTED PER PROTOCOL. SEE NUCLEAR MEDICINE REPORT. NO SUPRAVENTRICULAR TACHYCARDIA. NO VENTRICULAR TACHYCARDIA. NO ARRHYTHMIAS NOTED.
== END 2020-04-25 14:31 | disposition home or self-care (01) ==
LOC: ER 14:26 → ERHOLD 17:23 → 2ND 19:55
PROVIDERS: ADMIT Family Medicine; ATTEND Family Medicine
DX: R07.9 Chest pain, unspecified (principal); I10 Essential (primary) hypertension; E78.5 Hyperlipidemia, unspecified; G25.81 Restless legs syndrome; F41.8 Other specified anxiety disorders; Z92.21 Personal history of antineoplastic chemotherapy; Z20.822 Contact with and (suspected) exposure to COVID-19; C50.912 Malignant neoplasm of unspecified site of left female breast; R94.31 Abnormal electrocardiogram [ECG] [EKG]
CPT/HCPCS: 93005; 93017; 93306; 87088; 85025 ×2; 87086; 80048 ×2; 36415; 83735 ×2; 82550; 85610; 80061; 85379; 80076; 84484 ×2; 82553; 83880; 71045; 78452; 99285; U0003; J2785; A9500; 81003; 81015; G0378